=== PATIENT | male | born 1970 | race African-American/Black ===

== ENCOUNTER 2019-12-13 20:35 | Emergency (ER) | payer OTHER ==
[~2019-12-13] VITALS: Ht 167.6 cm; Wt 90.7 kg
[2019-12-13] MEDS ORDERED: ATENOLOL25 MG PO (20:51)
[2019-12-13] MEDS ORDERED: HYDROCHLOROTHIA25 MG PO (20:51)
--- NOTE | 2019-12-14 07:53 | EKG ---
[facility] [address] [facility] [place] [address] Signed Normal sinus rhythm Minimal voltage criteria for LVH, may be normal variant T wave abnormality, consider inferior ischemia Abnormal ECG No previous ECGs available Confirmed by TALAT REYES MD ([id number]) on 12/14/2019 7:53:04 AM Electronically Signed By: TALAT REYES MD 12/14/19 0753 PATIENT NAME: GIRISH UPTON Electrocardiogram DATE OF : 66 PHYSICIAN: TALAT REYES MD REPORT #: [id number] REPORT IS CONFIDENTIAL AND NOT TO BE RELEASED WITHOUT AUTHORIZATION
== END 2019-12-14 00:35 | disposition home or self-care (01) ==
LOC: ED 20:35
DX: R07.9 Chest pain, unspecified (principal); I10 Essential (primary) hypertension; Z87.891 Personal history of nicotine dependence; Z79.899 Other long term (current) drug therapy
CPT/HCPCS: 71045; 80053; 83735; 84484; 85025; 93005; 93010; 99285-25